=== PATIENT | male | born 2000 | race Two or more races ===

== ENCOUNTER → 2024-07-08 | Outpatient (CLI) | payer BC, SELFPAY ==
--- NOTE | 2024-07-08 09:03 | XR_ITS ---
Examination: Humerus 2 views left Technique: Humerus, AP lateral 2 views Date and time of exam: July 08, 2024 0915 hours INDICATIONS: Arm injury 9 months ago with persistent pain FINDINGS: No shoulder fracture or dislocation Shaft humerus intact IMPRESSION: No fracture
== END | disposition home or self-care (01) ==
LOC: CDIM 08:50
PROVIDERS: PCP Nurse Practitioner Family; Referring Provider Nurse Practitioner Family; Visit Provider Nurse Practitioner Family
DX: S59.902A Unspecified injury of left elbow, initial encounter (principal); X58.XXXA Exposure to other specified factors, initial encounter
CPT/HCPCS: 73060

== ENCOUNTER → 2025-04-19 | Outpatient (CLI) | payer BC, SELFPAY ==
--- NOTE | 2025-04-19 13:30 | XR_ITS ---
Examination: MRI left elbow without contrast Date and time of exam: April 19, 2025, 1347 hours INDICATIONS: Boxing injury with elbow pain 2 years Technique: Multiple MRI axial and sagittal sections left elbow Sagittal T2-weighted images, TR 3500, TE 118 T1 weighted transverse sections, TR 688 T8.5, T2-weighted sagittal sections T1 weighted sagittal sections TR 621, TE 30 T2 axial sections, TR 4, 190, TE 84. Findings: No bone contusion or marrow edema, fracture or avascular necrosis Lateral ligamentous complex is intact Moderate strain common flexor tendon Intact long head of the biceps inserting into the radial tuberosity No cortical bone erosion Small knee effusion No ossified joint bodies Increased signal and thickening of the triceps tendon, sagittal image 14, moderate strain IMPRESSION: No occult fracture or bone contusion or marrow edema No ossified joint bodies Moderate strain common flexor tendon Moderate strain triceps tendon
== END | disposition home or self-care (01) ==
LOC: SMRI 13:16
PROVIDERS: PCP Nurse Practitioner Family; Referring Provider Nurse Practitioner Family; Visit Provider Nurse Practitioner Family
DX: S56.212A Strain of other flexor muscle, fascia and tendon at forearm level, left arm, initial encounter (principal); S46.312A Strain of muscle, fascia and tendon of triceps, left arm, initial encounter; Y93.71 Activity, boxing
CPT/HCPCS: 73221